=== PATIENT | female | born 1965 | race Caucasian/White ===

== ENCOUNTER 2018-10-24 10:10 | Emergency (ER) | payer OTHER ==
[~2018-10-24] VITALS: Ht 160 cm; Wt 91.0 kg
[2018-10-24] MEDS ORDERED: MECLIZINE 25MG TABLET PO ONE (13:45)
[2018-10-24 14:08] LABS: HEMATOCRIT. 40.5 % (36.0-48.0); HEMOGLOBIN. 13.6 g/dL (12.0-16.0); MEAN CORPUSCULAR HEMOGLOBIN 29.8 pg (28.0-32.0); MEAN CORPUSCULAR VOLUME 88.4 fL (81.0-99.0); MEAN PLATELET VOLUME 8.6 fl (7.4-10.4); PLATELET 228 x1000/uL (130-400); RED BLOOD CELL COUNT 4.58 mill/uL (4.2-5.4); RED CELL DISTRIBUTION WIDTH 12.5 % (11.6-14.6)
[2018-10-24 14:14] LABS: CHLORIDE 110 mEq/L (98-107); PROTHROMBIN TIME 10.4 sec (9.6-11.0)
[2018-10-24 14:26] LABS: PLATELET ESTIMATE NORMAL
[2018-10-24 15:56] VITALS: BP 129/82
== END 2018-10-24 15:58 | disposition home or self-care (01) ==
LOC: ER 10:10
DX: R42 Dizziness and giddiness (principal); Z96.659 Presence of unspecified artificial knee joint; Z90.710 Acquired absence of both cervix and uterus
CPT/HCPCS: 36415; 70450; 80053; 81025; 85025; 85610; 93005; 99284; J8597

== ENCOUNTER 2019-12-20 17:19 | Emergency (ER) | payer OTHER ==
[~2019-12-20] VITALS: Ht 160 cm; Wt 86.0 kg
[2019-12-20] MEDS ORDERED: ACETAMINOPHEN 325MG TABLET PO ONE (18:30)
[2019-12-20 19:21] VITALS: BP 148/80
== END 2019-12-20 22:26 | disposition home or self-care (01) ==
LOC: ER 17:19
DX: R05 Cough (principal); M54.5 Low back pain; R03.0 Elevated blood-pressure reading, without diagnosis of hypertension
CPT/HCPCS: 71045; 99283

== ENCOUNTER 2020-12-14 07:58 | Emergency (ER) | payer MEDICAID, OTHER ==
[~2020-12-14] VITALS: Ht 160 cm; Wt 91.0 kg
[2020-12-14] MEDS ORDERED: ACETAMINOPHEN 325MG TABLET PO STA (08:14)
[2020-12-14] MEDS ORDERED: FAMOTIDINE 20MG TABLET PO ONE (08:15)
[2020-12-14 08:57] LABS: BASOPHILS % 0.2 % (0.0-2.0); EOSINOPHILS % 1.9 % (0.0-5.0); HEMATOCRIT. 40.2 % (36.0-48.0); HEMOGLOBIN. 13.8 g/dL (12.0-16.0); LYMPHOCYTES % 38.4 % (20.0-50.0); MEAN CORPUSCULAR HEMOGLOBIN 30.1 pg (28.0-32.0); MEAN CORPUSCULAR VOLUME 87.5 fL (81.0-99.0); MEAN PLATELET VOLUME 8.8 fl (7.4-10.4); MONOCYTES % 8.7 % (2.0-8.0); NEUTROPHILS % 50.8 % (40.0-76.0); PLATELET 213 x1000/uL (130-400); RED BLOOD CELL COUNT 4.59 mill/uL (4.2-5.4); RED CELL DISTRIBUTION WIDTH 13.2 % (11.6-14.6)
[2020-12-14 09:00] LABS: CHLORIDE 107 mEq/L (98-107)
[2020-12-14 09:02] LABS: PROTHROMBIN TIME 11.1 sec (9.6-11.0)
[2020-12-14 11:51] VITALS: BP 120/72
== END 2020-12-14 11:57 | disposition home or self-care (01) ==
LOC: ER 08:20
DX: R07.2 Precordial pain (principal); E87.5 Hyperkalemia; R03.0 Elevated blood-pressure reading, without diagnosis of hypertension
CPT/HCPCS: 36415; 71045; 80053; 83880; 84484; 85025; 85610; 93005; 99285; Z7610